=== PATIENT | male | born 1985 ===

== ENCOUNTER 2022-10-22 15:14 | Emergency (ER) | payer SELFPAY ==
[2022-10-22] MEDS ORDERED: Ibuprofen 800 MG TAB ONE (16:52)
== END 2022-10-22 17:09 | disposition home or self-care (01) ==
LOC: CSHERS 15:14
DX: S16.1XXA Strain of muscle, fascia and tendon at neck level, initial encounter (principal); F17.290 Nicotine dependence, other tobacco product, uncomplicated; V89.2XXA Person injured in unspecified motor-vehicle accident, traffic, initial encounter
CPT/HCPCS: 99283